=== PATIENT | male | born 1940 | race Caucasian/White ===

== ENCOUNTER 2022-06-25 15:50 | Emergency (ER) | payer MEDICARE, BC, SELFPAY ==
[2022-06-25 15:59] VITALS: PULSE 100; O2SAT 98
--- NOTE | 2022-06-25 16:12 | ED_ITS ---
HPI - General Adult General Time Seen by Provider: 16:12 Date Seen: 06/25/22 Chief complaint: Epistaxis/Nosebleed Stated complaint: Bloody nowe Time Seen by Provider: 06/25/22 16:12 Source: patient and RN notes reviewed Mode of arrival: ambulatory Limitations: no limitations History of Present Illness HPI narrative: Patient is an 82-year-old male coming in with nose bleed out of his left naris. He thinks he may have irritated his nose. Was itching at the left nostril and started bleeding. He is on Coumadin. His INR was 3.1 yesterday. He states he is on the Coumadin valve replacement. He states they went through his groin in did this. This sounds as if it was maybe a TAVR, wonder if maybe there was underlying atrial fibrillation but do not know as this is what the patient tells me. He is feeling little weak, feels like he swallowed a lot of blood. This nose bleed started within the last 1/2 hour. Seems to be controlled with pressure that he has been applying. No other known trauma to the nose. Related Data Home Medications Medication Instructions Recorded Confirmed atorvastatin 20 mg tablet mg 06/25/22 doxazosin 8 mg tablet mg 06/25/22 sertraline 100 mg tablet mg 06/25/22 warfarin 2 mg tablet mg 06/25/22 warfarin 3 mg tablet mg 06/25/22 Allergies Allergy/AdvReac Type Severity Reaction Status Date / Time No Known Drug Allergies Allergy Verified 06/25/22 16:00 Review of Systems Narrative: As per HPI PFSH PFSH Social History Smoking Status: Never smoker Do you use any of these nicotine containing products: None Second hand tobacco smoke exposure: No How often do you have a drink containing alcohol: never How often do you have six or more drinks on one occasion: Never AUDIT-C Alcohol total score: 0 Non-prescribed substance use: denies use service: No Exam Const: Vital Signs, click to edit/add: Vital Signs - 24 hr 06/25/22 15:59 Pulse Rate [Left P ulse Oximeter] 100 Pulse Oximetry 98 Oxygen Delivery Me thod Room Air Documenting provider has reviewed patient's vital signs: yes Common normals: no apparent distress, average body habitus, oriented x3, no limitations, healthy appearing, alert and well nourished General appearance: cooperative and comfortable Other: Has pressure and some blood on the tissue sees hanging onto his nose with. HENMT: Other: Pressure was released, large clot came out upon withdrawal of the pressure. No further gushing of blood but did give him 2 sprays Afrin in the left nares and then put a cotton ball soaked with Afrin back in the left nares with the nasal prongs on. There was no drainage down his posterior pharynx at this time. Eye: Common normals: PERRL, EOMs intact bilaterally, conjunctivae normal and no scleral icterus Conjunctiva: conjunctiva(e) normal Pupil: PERRL Resp: Common normals: normal respiratory effort, no retractions, no use of accessory muscles and clear to auscultation bilaterally Auscultation: clear to auscultation bilaterally Cardio: Common normals: regular rate, regular rhythm, S1 normal heart sound, S2 normal heart sound, no gallops, no clicks and no murmurs Rate: regular rate Rhythm: regular rhythm Heart sounds: S1 normal and S2 normal Neuro: Common normals: oriented x3 Sensorium/orientation: alert Course Reevaluation(s) Reevaluation #1: Patient had the cotton balls removed and the nasal prong removed. No active bleeding. Inspected both nares, no evidence of site of bleeding. Actually could not see any residual blood in the left nares. Thus, with patient being on Coumadin, opted to place a medium nasal packing. Strings were attached to his cheek with paper tape. Did not have any further bleeding while here. Time: 17:09 Vital Signs Vital signs: Initial Vital Signs Pulse Rate 100 06/25/22 15:59 Pulse Rhythm 06/25/22 15:59 Pulse Strength 3+ Normal 06/25/22 15:59 Pulse Oximetry 98 06/25/22 15:59 Oxygen Delivery Method 06/25/22 15:59 Vital Signs Pulse Rate 100 06/25/22 15:59 Pulse Oximetry 98 06/25/22 15:59 Oxygen Delivery Method 06/25/22 15:59 Pulse Rate 100 06/25/22 15:59 Pulse Oximetry 98 06/25/22 15:59 Oxygen Delivery Method 06/25/22 15:59 Medical Decision Making Lab Data Lab results reviewed: Yes I reviewed the patient's lab results Labs: Lab Results 06/25/22 06/25/22 Range/Units 16:27 16:27 WBC 7.81 (4.50-11.00) K/uL RBC 5.03 (4.30-5.90) m/uL Hgb 16.4 (13.5-17.5) gm/dL Hct 47.7 (37.0-53.0) % MCV 95 (80-100) fL MCH 33 (26-34) pg MCHC 34 (32-36) gm/dL RDW Coeff of Janice 13.6 (11.5-15.5) % Plt Count 136 L (140-440) K/uL Neut % (Auto) 51.5 (42.0-72.0) % Lymph % (Auto) 35.0 (20-44) % [place] % (Auto) 10.2 (0.0-11.0) % Eos % (Auto) 2.6 (0.0-7.0) % Baso % (Auto) 0.4 (0.0-3.0) % Neut # (Auto) 4.03 (1.7-7.0) K/uL Lymph # (Auto) 2.73 (0.90-2.90) K/uL [place] # (Auto) 0.80 (0.00-0.90) K/UL Eos # (Auto) 0.20 (0.00-0.50) K/uL Baso # (Auto) 0.03 (0.00-0.30) K/uL INR 2.61 H (0.91-1.10) Critical Care Time Critical Care Time Critical Care Time: No Discharge Plan Discharge Clinical Impression: Epistaxis Patient Disposition: Home, Self-Care Condition: Stable Instructions: Nosebleed (ED) Additional Instructions: Leave packing in over weekend, follow up in clinic Tuesday morning to have pack ing removed. If there is further bleeding, will need repacking and referral to ENT. INR was 2.61 here today. If you have further bleeding around the packing, need to return to the ER for further evaluation. Activity Level: No strenuous activity Prescriptions: No Action atorvastatin 20 mg tablet sertraline 100 mg tablet warfarin 3 mg tablet doxazosin 8 mg tablet warfarin 2 mg tablet Label Comments: TAKE ONE AND ONE-HALF TABLETS EVERY TUESDAY AND TUESDAY AND TWO TABLETS IN THE EVENING ALL OTHER DAYS OR DIRECTED Follow Up/Referrals: Shaun Wilkes MD [Primary Care Provider] - Stand Alone Forms: [employer] Info Instructions
[2022-06-25] MEDS: OXYMETAZOLINE (AFRIN) SOAK 1 EACH TOPICAL (16:19)
[2022-06-25 16:34] LABS: Basophils Absolute Auto 0.03 K/uL (0.00-0.30); Basophils Percent Auto 0.4 % (0.0-3.0); Eosinophils Percent Auto 2.6 % (0.0-7.0); Hematocrit 47.7 % (37.0-53.0); Hemoglobin* 16.4 gm/dL (13.5-17.5); Immature Granulocytes Abs Auto 0.02 K/uL (0.00-0.30); Immature Granulocytes Pct Auto 0.3 %; Lymphocytes Absolute Auto 2.73 K/uL (0.90-2.90); Mean Corpuscular HGB Conc 34 gm/dL (32-36); Mean Corpuscular Hemoglobin 33 pg (26-34); Mean Corpuscular Volume 95 fL (80-100); Monocytes Percent Auto 10.2 % (0.0-11.0); Neutrophils Absolute Auto 4.03 K/uL (1.7-7.0); Neutrophils Percent Auto 51.5 % (42.0-72.0); Platelet Count* 136 K/uL (140-440); RDW Coefficient of Variation % 13.6 % (11.5-15.5); Red Blood Count 5.03 m/uL (4.30-5.90); White Blood Count* 7.81 K/uL (4.50-11.00)
[2022-06-25 16:44] LABS: Slide Review Reflex No
[2022-06-25 16:50] LABS: INR 2.61 (0.91-1.10); Prothrombin Time 29.2 Seconds
== END 2022-06-25 17:15 | disposition home or self-care (01) ==
PROVIDERS: Emergency Provider Family Medicine; PCP Family Medicine
DX: R04.0 Epistaxis (principal)
CPT/HCPCS: 36415; 85025; 85610; 99283

== ENCOUNTER 2022-10-28 23:11 | Emergency (ER) | payer MEDICARE, BC, SELFPAY ==
[2022-10-28 23:18] VITALS: BP 154/93; PULSE 76; RESP 18; TEMP 36.6; O2SAT 98; BMI 27.5
[2022-10-29] MEDS: OXYMETAZOLINE (AFRIN) SOAK 1 EACH TOPICAL (00:39)
--- NOTE | 2022-10-29 01:12 | ED_ITS ---
HPI - General Adult General Date Seen: 10/29/22 Chief complaint: Epistaxis/Nosebleed Stated complaint: bloody nose Time Seen by Provider: 10/29/22 00:12 Source: patient Mode of arrival: ambulatory Limitations: no limitations History of Present Illness HPI narrative: 82-year-old male who developed a nose bleed at about 11:[address] when he was on his way to bed. He is on Coumadin for a valve replacement and his last INR was 2.8 one month ago. No injury to the nose. The bleeding was anterior and he did put a a nasal clothespin on prior to coming in. He was brought in by a friend. He has only had one previous ER visit for nose bleeds. Related Data Home Medications Medication Instructions Recorded Confirmed atorvastatin 20 mg tablet mg 06/25/22 doxazosin 8 mg tablet mg 06/25/22 sertraline 100 mg tablet mg 06/25/22 warfarin 2 mg tablet mg 06/25/22 warfarin 3 mg tablet mg 06/25/22 Allergies Allergy/AdvReac Type Severity Reaction Status Date / Time No Known Drug Allergies Allergy Verified 06/25/22 16:00 Review of Systems Narrative: Review of systems is outlined above otherwise noted to be negative. PFSH PFSH Social History Smoking Status: Never smoker Do you use any of these nicotine containing products: None Second hand tobacco smoke exposure: No How often do you have a drink containing alcohol: never How often do you have six or more drinks on one occasion: Never AUDIT-C Alcohol total score: 0 Non-prescribed substance use: denies use service: No Exam Narrative: Exam Narrative: Vitals noted. HEENT: Conjunctiva clear. Tympanic membranes are pearly white bilaterally. Posterior pharynx is clear without erythema or exudate. Neck is supple without adenopathy, thyromegaly, carotid bruit. Lungs: Clear to auscultation in all cardona. No wheezes, rales, rhonchi. Heart: Regular rate and rhythm without murmur. Skin: No abnormalities noted of the exposed skin. Neurologic: Awake, alert, fully oriented. Neurologic exam is nonfocal. He has some dried blood in both nostrils. There was trace active bleeding coming from the right septum. After treatment with compression and Afrin there was no further bleeding. Const: Vital Signs, click to edit/add: Vital Signs - 24 hr 10/28/22 23:18 Temperature 97.8 F Pulse Rate [Pulse Oximeter] 76 Respiratory Rate 18 Blood Pressure [Le ft Upper Arm] 154/93 H Pulse Oximetry 98 Oxygen Delivery Me thod Room Air Course Course Hospital Course: Patient was seen and examined. I removed the compression from his nose. There was minimal bleeding noted on the right side, none on the left. Both sides are treated with Afrin and further compression. After 30 minutes of observation he had no recurrent bleeding. He has INR was therapeutic. He was anxious for discharge. Vital Signs Vital signs: Initial Vital Signs Temperature 97.8 F 10/28/22 23:18 Temperature Source Temporal Artery Scan 10/28/22 23:18 Pulse Rate 76 10/28/22 23:18 Respiratory Rate 18 10/28/22 23:18 Blood Pressure 154/93 H 10/28/22 23:18 Blood Pressure Mean 113 H 10/28/22 23:18 Pulse Oximetry 98 10/28/22 23:18 Oxygen Delivery Method Room Air 10/28/22 23:18 Vital Signs Temperature 97.8 F 10/28/22 23:18 Pulse Rate 76 10/28/22 23:18 Respiratory Rate 18 10/28/22 23:18 Blood Pressure 154/93 H 10/28/22 23:18 Pulse Oximetry 98 10/28/22 23:18 Oxygen Delivery Method Room Air 10/28/22 23:18 Temperature 97.8 F 10/28/22 23:18 Pulse Rate 76 10/28/22 23:18 Respiratory Rate 18 10/28/22 23:18 Blood Pressure 154/93 H 10/28/22 23:18 Pulse Oximetry 98 10/28/22 23:18 Oxygen Delivery Method Room Air 10/28/22 23:18 Medical Decision Making Lab Data Labs: Lab Results 10/29/22 Range/Units 00:55 INR 2.64 H (0.91-1.10) Discharge Plan Discharge Clinical Impression: Epistaxis Patient Disposition: Home, Self-Care Condition: Improved Additional Instructions: If bleeding resumes apply steady compression for 30 minutes. Continue current Warfarin dose. No blowing or picking for a couple days. Intranasal Bacitracin twice a day. Prescriptions: No Action atorvastatin 20 mg tablet sertraline 100 mg tablet warfarin 3 mg tablet doxazosin 8 mg tablet warfarin 2 mg tablet Patient Comments: TAKE ONE AND ONE-HALF TABLETS EVERY TUESDAY AND TUESDAY AND TWO TABLETS IN THE EVENING ALL OTHER DAYS OR DIRECTED Follow Up/Referrals: Shaun Wilkes MD [Primary Care Provider] - Stand Alone Forms: [employer] Info Instructions
[2022-10-29 01:15] LABS: INR 2.64 (0.91-1.10); Prothrombin Time 29.5 Seconds
--- NOTE | 2022-10-29 01:25 | ED.NURSE ---
No bleeding noted. Patient reports he is going home at this time. MD updated. Patient provided with bacitracin per MD. Instructed on home care and monitoring. Patient verbalized understanding. Left prior to discharge paperwork provided.
== END 2022-10-29 01:27 | disposition home or self-care (01) ==
PROVIDERS: Emergency Provider Family Medicine; PCP Family Medicine
DX: R04.0 Epistaxis (principal)
CPT/HCPCS: 36415; 85610; 99282

== ENCOUNTER 2022-10-29 11:17 | Emergency (ER) | payer MEDICARE, BC, SELFPAY ==
[2022-10-29 11:24] VITALS: BP 134/84; PULSE 80; RESP 20; TEMP 36.1; O2SAT 97; BMI 27.8
--- NOTE | 2022-10-29 11:40 | ED_ITS ---
History of Present Illness General Chief Complaint: Epistaxis/Nosebleed Stated Complaint: Nose bleed, on thinners Time Seen by Provider: 10/29/22 11:23 History of Present Illness HPI Narrative: This 82-year-old male comes in with recurrent epistaxis. He was here last evening from 10:00 p.m. to 2:00 a.m. he went home with a nasal clamp. This morning he bent forward to do something onto the floor when the bleeding started with at increased pressure in his nose. He is on Coumadin. He does not report any lightheadedness or shortness of breath. He states that he continues to swallow blood posteriorly when direct pressure is applied with the clamp on the anterior aspect of his nose. He is bleeding from the left nostril. The right nostril appears normal. Related Data Home Medications Medication Instructions Recorded Confirmed atorvastatin 20 mg tablet mg 06/25/22 doxazosin 8 mg tablet mg 06/25/22 sertraline 100 mg tablet mg 06/25/22 warfarin 2 mg tablet mg 06/25/22 warfarin 3 mg tablet mg 06/25/22 Allergies Allergy/AdvReac Type Severity Reaction Status Date / Time No Known Drug Allergies Allergy Verified 06/25/22 16:00 Review of Systems Status of ROS: Reports: 10 or more systems reviewed and unremarkable except as noted in History and below Narrative: Constitutional: No fevers, no weight gain or loss. Eyes: No discharge. No vision changes. HENT: No congestion, no sore throat, no ear pain. Nose bleed as described above. Cardiovascular: No chest pain, no palpitations. Respiratory: No shortness of breath, no wheezes, no cough. Gastrointestinal: No abdominal pain, no vomiting, no diarrhea. Genitourinary: No dysuria, no hematuria. Musculoskeletal: Normal range of motion. Skin: No rashes, no pruritis. Neurological: No dizziness, weakness, sensory change, speech change. Endo/Heme/Allergies: No bruising or bleeding. No polydipsia. Pysch: no suicidality, no anxiety, no insomnia. All other systems reviewed and are negative. [facility] Social History Smoking Status: Never smoker Do you use any of these nicotine containing products: None Second hand tobacco smoke exposure: No How often do you have a drink containing alcohol: never How often do you have six or more drinks on one occasion: Never AUDIT-C Alcohol total score: 0 Non-prescribed substance use: denies use service: No Exam Narrative: Exam Narrative: Constitutional: Well-developed, well-nourished, no acute distress. HEENT: Active bleeding from the left nostril anteriorly and posteriorly. Neck: Normal range of motion. Nontender. Supple. Heart: Intact distal pulses. Lungs: No chest discomfort. No wheezes, rhonchi, or rales. Abdomen: Nontender. Back: Normal range of motion. Extremities: Normal range of motion. No injury. Skin: Intact. No rash. Warm. No erythema or pallor. Neurologic: No altered sensation. No weakness. Alert and oriented. Psychiatric: No suicidality. No anxiety or depression. No insomnia. Nursing notes and vitals signs are reviewed. Const: Vital Signs, click to edit/add: Vital Signs - 24 hr 10/29/22 11:24 Temperature 97 F L Pulse Rate [Pulse Oximeter] 80 Respiratory Rate 20 Blood Pressure [Ri ght Upper Arm] 134/84 Pulse Oximetry 97 Oxygen Delivery Me thod Room Air Course Vital Signs Vital signs: Initial Vital Signs Temperature 97 F L 10/29/22 11:24 Temperature Source Temporal Artery Scan 10/29/22 11:24 Pulse Rate 80 10/29/22 11:24 Pulse Rhythm Regular 10/29/22 11:24 Respiratory Rate 20 10/29/22 11:24 Blood Pressure 134/84 10/29/22 11:24 Blood Pressure Mean 100 10/29/22 11:24 Blood Pressure Position Sitting 10/29/22 11:24 Pulse Oximetry 97 10/29/22 11:24 Oxygen Delivery Method Room Air 10/29/22 11:24 Vital Signs Temperature 97 F L 10/29/22 11:24 Pulse Rate 80 10/29/22 11:24 Respiratory Rate 20 10/29/22 11:24 Blood Pressure 134/84 10/29/22 11:24 Pulse Oximetry 97 10/29/22 11:24 Oxygen Delivery Method Room Air 10/29/22 11:24 Temperature 97 F L 10/29/22 11:24 Pulse Rate 80 10/29/22 11:24 Respiratory Rate 20 10/29/22 11:24 Blood Pressure 134/84 10/29/22 11:24 Pulse Oximetry 97 10/29/22 11:24 Oxygen Delivery Method Room Air 10/29/22 11:24 MDM - Epistaxis MDM Narrative Medical decision making narrative: This patient comes in with recurrent epistaxis. He was here for 4 hours in the night and his bleeding had stopped at the time when home but now has recurred. He is on Coumadin and his INR was measured at 2.6. His hemoglobin is reassuring at 16.4. A nasal clamp was applied after instilling Afrin. He did not have any bleeding anteriorly but continued to swallow blood indicating more likelihood of a posterior bleed. I did then place a rhino rocket in the left nostril which was successful to stop the bleeding posteriorly. He continued to bleed some from the anterior aspect of his left nostril so there was gauze that was packed in this area. I also packed some caught in into his right nostril. He no longer has active bleeding. I advised him to leave these packings in place for 2-3 days. He should then return to clinic or to the emergency room to have the nasal rhino rocket removed. I advised him to hold his Coumadin for the next couple days and follow-up with INR clinic. Discharge Plan Discharge Clinical Impression: Epistaxis Patient Disposition: Home, Self-Care Condition: Improved Additional Instructions: Keep nasal packing in place. Follow up with clinic or return to emergency department in 2-3 days for removal of the rhino rocket. Hold Coumadin for the next 2 days and then follow up with INR clinic. Return if worsening. Prescriptions: No Action atorvastatin 20 mg tablet sertraline 100 mg tablet warfarin 3 mg tablet doxazosin 8 mg tablet warfarin 2 mg tablet Patient Comments: TAKE ONE AND ONE-HALF TABLETS EVERY TUESDAY AND TUESDAY AND TWO TABLETS IN THE EVENING ALL OTHER DAYS OR DIRECTED Follow Up/Referrals: Shaun Wilkes MD [Primary Care Provider] - Stand Alone Forms: [employer] Info Instructions
[2022-10-29] MEDS: OXYMETAZOLINE 0.05% NASAL SPRAY 1 SPRAY NOSTRIL-L (14:16)
== END 2022-10-29 14:14 | disposition home or self-care (01) ==
PROVIDERS: Emergency Provider Emergency Medicine Emergency Medical Services; PCP Family Medicine
DX: R04.0 Epistaxis (principal)
CPT/HCPCS: 36415; 85610; 99282; 99284

== ENCOUNTER 2022-10-29 17:30 | Emergency (ER) | payer MEDICARE, BC, SELFPAY ==
[2022-10-29 17:34] VITALS: BP 128/105; PULSE 74; RESP 20; TEMP 36.6; O2SAT 97; BMI 27.8
[2022-10-29 17:47] VITALS: BP 122/87; PULSE 72; O2SAT 97
--- NOTE | 2022-10-29 18:24 | ED_ITS ---
History of Present Illness General Chief Complaint: Epistaxis/Nosebleed Stated Complaint: Bloody Nose Time Seen by Provider: 10/29/22 17:38 History of Present Illness HPI Narrative: This 82-year-old male comes back for his 3rd visit in the past 24 hours because of recurrent epistaxis. He is on Coumadin which is contributing to his persistent and recurrent bleeding. I saw this patient about 6 hours ago and did place a rhino rocket in the left nostril and this was followed by cotton swabs used for packing and teary early in both nostrils. The patient returns because he is bleeding up through the nasolacrimal duct an out into his eye on the left side. Related Data Home Medications Medication Instructions Recorded Confirmed atorvastatin 20 mg tablet mg 06/25/22 doxazosin 8 mg tablet mg 06/25/22 sertraline 100 mg tablet mg 06/25/22 warfarin 2 mg tablet mg 06/25/22 warfarin 3 mg tablet mg 06/25/22 Allergies Allergy/AdvReac Type Severity Reaction Status Date / Time No Known Drug Allergies Allergy Verified 06/25/22 16:00 Review of Systems Status of ROS: Reports: 10 or more systems reviewed and unremarkable except as noted in History and below Narrative: Constitutional: No fevers, no weight gain or loss. Eyes: No vision changes. Bleeding into the left eye from the nasolacrimal duct. HENT: No congestion, no sore throat, no ear pain. Cardiovascular: No chest pain, no palpitations. Respiratory: No shortness of breath, no wheezes, no cough. Gastrointestinal: No abdominal pain, no vomiting, no diarrhea. Genitourinary: No dysuria, no hematuria. Musculoskeletal: Normal range of motion. Skin: No rashes, no pruritis. Neurological: No dizziness, weakness, sensory change, speech change. Endo/Heme/Allergies: No bruising or bleeding. No polydipsia. Pysch: no suicidality, no anxiety, no insomnia. All other systems reviewed and are negative. PFSH PFSH Social History Smoking Status: Never smoker Do you use any of these nicotine containing products: None Second hand tobacco smoke exposure: No How often do you have a drink containing alcohol: never How often do you have six or more drinks on one occasion: Never AUDIT-C Alcohol total score: 0 Non-prescribed substance use: denies use service: No Exam Narrative: Exam Narrative: Constitutional: Well-developed, well-nourished, no acute distress. HEENT: No active bleeding in the posterior pharynx from the nose or anteriorly from either nostril. Nasal packing and rhino rocket is in place. There is evidence of blood in the left eye emanating from the nasal lacrimal duct. Neck: Normal range of motion. Nontender. Supple. Heart: Intact distal pulses. Lungs: No chest discomfort. No wheezes, rhonchi, or rales. Abdomen: Nontender. Back: Normal range of motion. Extremities: Normal range of motion. No injury. Skin: Intact. No rash. Warm. No erythema or pallor. Neurologic: No altered sensation. No weakness. Alert and oriented. Psychiatric: No suicidality. No anxiety or depression. No insomnia. Nursing notes and vitals signs are reviewed. Const: Vital Signs, click to edit/add: Vital Signs - 24 hr 10/29/22 17:34 10/29/22 17:47 Temperature 97.8 F Pulse Rate [Pulse Oximeter] 74 72 Respiratory Rate 20 Blood Pressure [Ri ght Forearm] 128/105 H 122/87 Pulse Oximetry 97 97 Oxygen Delivery Me thod Room Air Room Air Course Vital Signs Vital signs: Initial Vital Signs Temperature 97.8 F 10/29/22 17:34 Temperature Source Temporal Artery Scan 10/29/22 17:34 Pulse Rate 74 10/29/22 17:34 Pulse Rhythm Regular 10/29/22 17:34 Respiratory Rate 20 10/29/22 17:34 Blood Pressure 128/105 H 10/29/22 17:34 Blood Pressure Mean 112 H 10/29/22 17:34 Blood Pressure Position Sitting 10/29/22 17:34 Pulse Oximetry 97 10/29/22 17:34 Oxygen Delivery Method Room Air 10/29/22 17:34 Vital Signs Temperature 97.8 F 10/29/22 17:34 Pulse Rate 74 10/29/22 17:34 Respiratory Rate 20 10/29/22 17:34 Blood Pressure 128/105 H 10/29/22 17:34 Pulse Oximetry 97 10/29/22 17:34 Oxygen Delivery Method Room Air 10/29/22 17:34 Temperature 97.8 F 10/29/22 17:34 Pulse Rate 72 10/29/22 17:47 Respiratory Rate 20 10/29/22 17:34 Blood Pressure 122/87 10/29/22 17:47 Pulse Oximetry 97 10/29/22 17:47 Oxygen Delivery Method Room Air 10/29/22 17:47 MDM - Epistaxis MDM Narrative Medical decision making narrative: This patient has persistent or recurrent epistaxis while on Coumadin. He is not reporting any lightheadedness or shortness of breath. His hemoglobin is at 16.4 when checked earlier today. His INR was also noted to be at 2.6. The nasal packing and rhino rocket was removed from his nasal passages. He was able to expel some clots from his nose. A double balloon nasal tampon was then placed. The posterior balloon was inflated to about 5 mL of air. Then the balloon was pulled forward while the anterior balloon was then inflated to about 5 mL of air. The procedure for installing it was rather brief and significantly uncomfortable but when we were finished he was feeling well and there was no sign of bleeding. The patient was observed for a while and continues to do well. Instructions were given regarding need to return [facility] at the beginning of next week. Discharge Plan Discharge Clinical Impression: Epistaxis Patient Disposition: Home, Self-Care Condition: Improved Additional Instructions: Follow-up [facility] at the beginning of next week for removal of the nasal double balloon. Call for appointment with Dr. Ortiz by dialing [phone]. Return if worsening symptoms happen. Prescriptions: No Action atorvastatin 20 mg tablet sertraline 100 mg tablet warfarin 3 mg tablet doxazosin 8 mg tablet warfarin 2 mg tablet Patient Comments: TAKE ONE AND ONE-HALF TABLETS EVERY TUESDAY AND TUESDAY AND TWO TABLETS IN THE EVENING ALL OTHER DAYS OR DIRECTED Follow Up/Referrals: Shaun Wilkes MD [Primary Care Provider] - Stand Alone Forms: [employer] Info Instructions
[2022-10-29] MEDS: OXYMETAZOLINE 0.05% NASAL SPRAY 1 SPRAY NOSTRIL-L (18:31)
== END 2022-10-29 19:15 | disposition home or self-care (01) ==
PROVIDERS: Emergency Provider Emergency Medicine Emergency Medical Services; PCP Family Medicine
DX: R04.0 Epistaxis (principal)
CPT/HCPCS: 30905; 36415; 85610; 99282; 99283; 99284